=== PATIENT | male | born 1990 | race Caucasian/White ===

== ENCOUNTER 2017-06-30 18:29 | Emergency (ER) | payer OTHER ==
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
[2017-06-30 20:06] VITALS: BP 146/78
--- NOTE | 2017-07-01 05:34 | Diagnostic Imaging Report ---
[address] [facility] [address] [address] Report Submission Date: Jun 30, 2017 7:26:29 PM CDT Patient Study Name: GOSIA SHINE Date: Jun 30, 2017 7:05:31 PM CDT Modality Type: CR Gender: M Description: UPPER EXTREMITY : 89 Institution: [facility] Physician: [address]MEN L[address] Examination: Plain film wrist History: Wrist discomfort Comparison exams: None available Findings: 3 views the wrist demonstrate normal cortical margins. No fracture. No dislocation. No soft tissue abnormality. Impression: No acute osseous abnormality Electronically signed on Jun 30, 2017 7:26:29 PM CDT by: Matthew LAURENT
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
--- NOTE | 2017-07-01 05:35 | Diagnostic Imaging Report ---
[address] [facility] [address] [facility].[address] [address] Report Submission Date: Jun 30, 2017 7:24:06 PM CDT Patient Study Name: GOSIA SHINE Date: Jun 30, 2017 7:11:34 PM CDT Modality Type: CR Gender: M Description: UPPER EXTREMITY : 92 Institution: [facility] Physician: [address] L[address] Examination: Plain film elbow History: Fall Comparison exams: None provided Findings: 3 views of the elbow demonstrate normal cortical margins. No fracture. No dislocation. Radial head is within normal limits. No joint effusion. Impression: No acute osseous abnormality. Electronically signed on Jun 30, 2017 7:24:06 PM CDT by: Matthew LAURENT
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
== END 2017-06-30 19:40 | disposition home or self-care (01) ==
LOC: ED 18:29
DX: S53.402A Unspecified sprain of left elbow, initial encounter (principal); S63.502A Unspecified sprain of left wrist, initial encounter; S63.92XA Sprain of unspecified part of left wrist and hand, initial encounter; W19.XXXA Unspecified fall, initial encounter; Y93.9 Activity, unspecified; Y99.9 Unspecified external cause status
CPT/HCPCS: 73080; 73090; 73110; 73130; 99283